=== PATIENT | female | born 1960 | race Caucasian/White ===

== ENCOUNTER 2020-05-08 07:59 | Day surgery (SDC) | payer SELFPAY ==
[2020-05-04 10:59] LABS: Absolute Lymphocytes (CBC) 1.9 K/uL (0.7-4.9); Basophils % 0.3 % (0-1.3); Hematocrit 47.2 % (36.0-45.0); Lymphocytes % 22.6 % (15.3-44.8); MPV 7.4 fL (7.6-11.3); RBC Red Blood Cell Count 4.96 M/uL (3.86-4.86)
[2020-05-04 11:21] LABS: Potassium 5.2 mmol/L (3.5-5.1)
--- NOTE | 2020-05-05 10:57 | RAD REPORT ---
EXAM DESCRIPTION: RAD - Chest Pa And Lat (2 Views) - 05/04/2020 10:18 pm CLINICAL HISTORY: preop, soft tissue mass removal from the neck COMPARISON: None TECHNIQUE: Frontal and lateral views of the chest were obtained. FINDINGS: The lungs are clear of peripheral mass or consolidation. Mild prominence of the interstiti al pattern probably baseline. Bilateral breast implants are in place. Heart size is normal and centr al vasculature is within normal limits. No pleural effusion or pneumothorax seen. No acute bony fin ding noted. No aortic abnormality. IMPRESSION: No acute cardiopulmonary process.
--- NOTE | 2020-05-05 11:41 | EKG ---
Test Date: 2020-05-04 Test Time: 10:20:47 [employer] Analyst: BILL MEASUREMENT RESULTS: Intervals: Rate: 71 CO: 158 QRSD: 74 QT: 414 QTc: 449 [place]: P: 38 CO: 158 QRS: 39 T: 20 INTERPRETIVE STATEMENTS: Normal sinus rhythm Normal ECG No previous ECG available for comparison Electronically Signed On 05-05-20 11:37:45 CDT by Emery Cuenca
[2020-05-08] MEDS ORDERED: CEFAZOLIN/SWI 1gm 1 GM/10 ML SYR ONE (09:12)
[2020-05-08] MEDS ORDERED: Ringers Lactate 1,000 ML IV ONE ×2 (09:12→11:17)
[2020-05-08] MEDS ORDERED: MIDAZOLAM HCL 2 MG/2 ML INJ ONE (09:32)
[2020-05-08] MEDS ORDERED: propofoL 200 MG/20 ML VIAL IV ONE (09:32)
[2020-05-08] MEDS ORDERED: FENTANYL CITR 100 MCG/2 ML ONE (09:32)
[2020-05-08] MEDS ORDERED: LIDOCAINE 2% MPF 5 ML VIAL ONE (09:33)
[2020-05-08] MEDS ORDERED: ONDANSETRON 4 MG/2 ML VIAL ONE (10:14)
[2020-05-08] MEDS ORDERED: GLYCOPYRROLATE 0.2 MG/ML SYR ONE (10:15)
[2020-05-08] MEDS ORDERED: KETOROLAC 30 MG/ML INJ ONE (11:00)
--- NOTE | 2020-05-08 11:26 | P.BOP ---
Preoperative diagnosis: posterior neck basal cell carcinoma Postoperative diagnosis: same Primary procedure: wide excision ulcerated basal cell carcinoma R post neck Secondary procedure: 6 x 5 cm Estimated blood loss: <10cc Specimen: mass, extra inferior margin Findings: margins free of tumor per Dr Ross Anesthesia: General Complications: None Transferred to: Recovery Room Condition: Good
[2020-05-08] MEDS ORDERED: HYDROMORPHONE HCL 1 MG/ML INJ ONE (12:05)
[2020-05-08 13:15] VITALS: BP 160/94; TEMP 97.3; O2SAT 100
--- NOTE | 2020-05-09 21:57 | DS ---
Date of Discharge: 05/08/2020 Diagnosis: Posterior neck basal cell carcinoma. Procedure: Wide excision of basal cell carcinoma of right posterior. Disposition: Home. Activity: As tolerated. No heavy lifting. Plan: Follow up in my office in 1 week. Call for appointment at [phone]. This area was infected p reviously. We have some infection under control. This time, we closed this. She may require wound care. She was advised the importance of her antibiotics treatment and keeping the area free of any d amage. The patient tolerated the procedure well. Medications: See orders. JAMES/EVELIO Voice ID: [id number] Report ID: [id number]
--- NOTE | 2020-05-09 21:57 | OP ---
Date of Procedure: 05/08/2020 Surgeon: Chau Booker MD Preoperative Diagnosis: Posterior neck basal cell carcinoma. Postoperative Diagnosis: Posterior neck basal cell carcinoma. Procedure: Wide excision of basal cell carcinoma, right posterior neck, 6 x 5 cm, with frozen sectio n. Estimated Blood Loss: Less than 10 mL. Specimen: Basal cell carcinoma. Also, we have extra inferior margins. Findings: The first excision shows that all the margins are free, except the inferior margin, so we send an extra specimen of inferior margins and per Dr. Ross, margins are negative. Anesthesia: General plus local. Indications: This is the case of a female, who comes to us with an ulcerated mass on the posterior n anushka region. It was initially excised, came back as a permanent section as a basal cell carcinoma josemanuel t need wide excision. The benefits, alternatives, and risks fully explained, which include, but not limited to infection, bleeding, damage to adjacent structures, anesthesia complication, nonhealing wo und, SD, and even . She also understands this may not relieve any symptoms. She might need mor e than one surgical intervention. She may require wound care. She understood and signed a consent. The patient has a previous open wound in the same region from previous biopsies of the area. The ar ea looks clean with no evidence of cellulitis. So, she understand and she preferred us to close that area as a primary intention, although the conditions with that is that in the next few days if not l ooking as good as we want to clinically, we might have to leave it open like we are doing right now. She was doing dressing changes at this moment. Description Of Procedure: With those conditions, the area was prepped and draped in sterile fashion. Previously, we marked the area in the holding room. We made a wedge incision of the skin away from the area of the previous ulcer. We went to an area about 6 x 5 cm. We sent the specimen out. We m arked for orientation and it came back as the inferior margin was positive for cancer. We then exten ded the area even more, 1 cm more area below the margins, and then we came back as margins free of tu mor. The area was irrigated. Hemostasis was obtained. We closed this in layers, 0 chromic in the f irst 2 layers and then 3-0 chromic and then interrupted 3-0 nylon. Profuse irrigation of the area wa s done before closure. The patient tolerated the procedure well. The patient was sent to recovery i n stable condition. JAMES/EVELIO Voice ID: [id number] Report ID: [id number]
== END 2020-05-08 12:55 | disposition home or self-care (01) ==
LOC: OR 07:59
PROVIDERS: ATTEND Surgery
PROC: 0HB4XZZ Excision of Neck Skin, External Approach (ICD-10-PCS; principal; 2020-05-08 09:15)
DX: C44.41 Basal cell carcinoma of skin of scalp and neck (principal); Z20.828 Contact with and (suspected) exposure to other viral communicable diseases
CPT/HCPCS: 36415; 71046; 80048; 85025; 88305; 88331; 88332; 93005; J0690; J1170; J2250; J2405; J2704; J3010; J7120; U0002